=== PATIENT | female | born 1990 | race Caucasian/White ===

== ENCOUNTER 2016-10-01 07:51 | Inpatient (IN) | payer OTHER ==
[2016-10-01 08:28] LABS: Hematocrit 37 % (35-47); Hemoglobin 12.4 g/dl (12.0-16.0); Mean Corpuscular HGB Conc 33 g/dl (31-36); Mean Corpuscular Hemoglobin 29 pg (27-31); Mean Corpuscular Volume 86 fL (80-97); Mean Platelet Volume 7 um3 (7.4-10.4); Red Blood Count 4.31 10^6/ul (4.0-5.4); Red Cell Distribution Width 15 % (10.5-15); White Blood Count 9.8 10^3/ul (3.5-10.8)
[2016-10-01] MEDS ORDERED: Oxytocin in LR* 20 UNITS/1,000 ML BAG IVPB SCH (10:00)
[2016-10-01 12:55] LABS: Benzodiazepine Urine Screen None Detected (None Detect)
[2016-10-01] MEDS ORDERED: OBEPIDURAL* 250 ML ONE (16:58)
[2016-10-01] MEDS ORDERED: Famotidine TAB* 20 MG PO PRN (17:34)
[2016-10-01] MEDS ORDERED: Sodium Citrate/Citric Acid* 15 ML UDC PO PRN (17:34)
[2016-10-01] MEDS ORDERED: EPHEDrine (Pressors)* 50 MG/ML VIAL IV PUSH PRN ×2 (17:34)
[2016-10-01] MEDS ORDERED: Phenylephrine IV* 40 MCG/ML 10 ML SYRINGE IV PUSH PRN ×2 (17:34)
[2016-10-01] MEDS ORDERED: OBEPIDURAL* 250 ML EPIDURAL SCH (18:00)
[2016-10-01] MEDS ORDERED: Glycerin ADULT SUPP PR PRN (19:22)
[2016-10-01] MEDS ORDERED: Witch Hazel PAD* JAR TOPICAL PRN (19:22)
[2016-10-01] MEDS ORDERED: Dibucaine 1% 28.35 GM TUBE PR PRN (19:22)
[2016-10-01] MEDS: Ibuprofen TAB* 600 MG PO PRN (19:39)
[2016-10-01] MEDS ORDERED: Simethicone TAB* 80 MG TAB.CHEW PO SCH (21:00)
[2016-10-01] MEDS: Docusate CAP* 100 MG PO SCH (21:35)
[2016-10-01] MEDS: Acetaminophen TAB* 325 MG PO PRN (21:36)
[2016-10-02] MEDS: Ibuprofen TAB* 600 MG PO PRN ×3 (02:07→17:58)
[2016-10-02] MEDS: Acetaminophen TAB* 325 MG PO PRN ×2 (05:12→09:41)
[2016-10-02 07:28] LABS: Hematocrit 34 % (35-47); Hemoglobin 11.4 g/dl (12.0-16.0); Mean Corpuscular HGB Conc 34 g/dl (31-36); Mean Corpuscular Hemoglobin 29 pg (27-31); Mean Corpuscular Volume 87 fL (80-97); Mean Platelet Volume 8 um3 (7.4-10.4); Red Cell Distribution Width 15 % (10.5-15); White Blood Count 11.1 10^3/ul (3.5-10.8)
[2016-10-02] MEDS ORDERED: Ferrous Gluconate TAB* 324 MG TAB PO SCH (09:00)
[2016-10-02] MEDS ORDERED: Varicella Virus Vaccine Live* 0.5 ML VIAL SUBCUT ONE (09:00)
[2016-10-02] MEDS: Docusate CAP* 100 MG PO SCH ×2 (09:41→14:34)
[2016-10-02 20:22] VITALS: BP 120/79
== END 2016-10-02 20:10 | disposition home or self-care (01) | DRG 560 ==
LOC: MCHOBOUT 07:51 → MCHOB 08:54
PROVIDERS: ADMIT Obstetrics & Gynecology; ATTEND Obstetrics & Gynecology
PROC: 10E0XZZ Delivery of Products of Conception, External Approach (ICD-10-PCS; principal; 2016-10-01)
PROC: 3E033VJ Introduction of Other Hormone into Peripheral Vein, Percutaneous Approach (ICD-10-PCS; 2016-10-01)
DX: O40.3XX0 Polyhydramnios, third trimester, not applicable or unspecified (principal); O69.81X0 Labor and delivery complicated by cord around neck, without compression, not applicable or unspecified; Z3A.39 39 weeks gestation of pregnancy; Z37.0 Single live birth
CPT/HCPCS: 36415; 80307; 85025; 86850; 86900; 86901; A9270-GY

== ENCOUNTER → 2019-04-10 05:13 | Emergency (ER) | payer OTHER ==
[~2019-04-10 05:13] MED LIST: Fluorescein Sodium TOPICAL* 1 MG TEST STRIP OPHTHALMIC ONE; Ketorolac INJ* 30 MG/ML 1 ML VIAL IV PUSH ONE; Metoclopramide IV* 5 MG/ML 2 ML VIAL IV ONE; Morphine 4 MG/ML VIAL (1 ml) 4 MG/ML VIAL IV ONE; NS 0.9% 1000 ML** 1,000 ML IV ONE; Tetracaine 0.5% OPTH.SOL 4 ML* 1 DROP BTL BOTH EYES SCH; Tetracaine 0.5% OPTH.SOL 4 ML* 1 DROP BTL ONE; diPHENhydraMINE PO* 50 MG PO ONE
--- NOTE | 2019-04-10 05:35 | ED ---
Throat Pain/Nasal Congestion - HPI Summary HPI Summary: Pt. is a 28 y.o female who presents to the ER for severe right eye pain x 7 days. Pt. states she noticed pain to right eye a week ago while camping. Pt. states she took claritin and pain improved. Pain started again last night and has been severe today. Pt. notes vision is blurry but not hazy. Pt. states she has a headache on the right with pressure behind her eye. She notes a hx of migraines but has never had sxs like this before. Does not wear contacts. Denies injury. Denies fever, vomiting, sore throat, nasal congestion. Sxs are moderate in severity. Lights and opening eye make sxs worse. Nothing makes sxs better. - History of Current Complaint Chief Complaint: EDEyeProblem Time Seen by Provider: 04/10/19 05:35 Hx Obtained From: Patient - Allergies/Home Medications Allergies/Adverse Reactions: Allergies Allergy/AdvReac Type Severity Reaction Status Date / Time MS Ceftriaxone [Ceftriaxone] Allergy Intermediate Hives Verified 10/01/16 08:15 MS Ketorolac Tromethamine Allergy Intermediate Hives Verified 10/01/16 08:15 [From Toradol] PMH/Surg Hx/FS Hx/Imm Hx Previously Healthy: Yes - Surgical History Surgery Procedure, Year, and Place: APPY AGE 15 - Immunization History Date of Tetanus Vaccine: < 10years Infectious Disease History: No Infectious Disease History: Denies: Traveled Outside the [place] in Last 30 Days - Family History Known Family History: Positive: Non-Contributory - Social History Occupation: Unemployed Lives: With Family Alcohol Use: None Substance Use Type: Reports: Marijuana Substance Use Comment - Amount & Last Used: Positive test Smoking Status (MU): Never Smoked Tobacco Have You Smoked in the Last Year: No Review of Systems Constitutional: Negative Negative: Fever, Chills Positive: Photophobia, Blurred Vision, Erythema ENT: Negative Cardiovascular: Negative Respiratory: Negative Skin: Negative Positive: Headache. Negative: Weakness, Paresthesia, Numbness All Other Systems Reviewed And Are Negative: Yes Physical Exam Triage Information Reviewed: Yes Vital Signs On Initial Exam: Initial Vitals Temp Pulse Resp BP Pulse Ox 97.5 F 72 18 151/104 96 04/10/19 05:14 04/10/19 05:14 04/10/19 05:14 04/10/19 05:14 04/10/19 05:14 Vital Signs Reviewed: Yes Appearance: Positive: Pain Distress - Pt. sitting on bed with right eye covered. Appears in pain but nontoxic. Skin: Positive: Warm, Dry Head/Face: Positive: Normal Head/Face Inspection Eyes: Positive: Other: - Left eye unremarkable. Right eye is diffusely injected with tearing. Cornea is clear and not hazy. EOMI with pain. Right pupil slightly more constricted when compared to the left. Pupil is round. Anterior chamber is clear. Neck: Positive: Supple Musculoskeletal: Positive: Normal, Strength/ROM Intact Neurological: Positive: Normal, Alert, Oriented to Person Place, Time, CN Intact II-III Psychiatric: Positive: Affect/Mood Appropriate Diagnostics - Vital Signs Vital Signs Temp Pulse Resp BP Pulse Ox 04/10/19 05:14 97.5 F 72 18 151/104 96 - Laboratory Lab Statement: Any lab studies that have been ordered have been reviewed, and results considered in the medical decision making process. EENT Course/Dx - Course Course Of Treatment: Pt. with severe right eye pain. Afebrile. Tetracaine applied without much improvement in pain. Fluoroscein dye applied and no uptake noted. Pt. examined by Dr. Graf as well. He feel sxs may be secondary to migraine. Will given migraine cocktail and plan to send pt. to ophthalmology this morning. After mirgraine cocktail pt. is feeling much better. She is sitting on side of bed with both eyes opened. She notes mild remaining irritations. I was able to get pt. an apt. today at Dr. Cho's office at 1015 for further evaluation. Pt.'s mother present. Pt. will go to their office today at 1015 for further evaluation. Will return to ER if sxs change or worsen. Pt. understands and agrees with plan. - Diagnoses Provider Diagnoses: Ocular migraine, Injection of surface of right eye Discharge - Sign-Out/Discharge Documenting (check all that apply): Patient Departure Patient Received Moderate/Deep Sedation with Procedure: No - Discharge Plan Condition: Improved Disposition: HOME Patient Education Materials: Eye Pain (ED), Ocular Migraine (ED) Referrals: Eliana Carbajal MD [Primary Care Provider] - Mars Cho MD [Medical Doctor] - Additional Instructions: Please go to Dr. Cho's office today, 04/10/19, at 1015am to be seen Return to ER sooner if symptoms change or worsen - Billing Disposition and Condition Condition: IMPROVED Disposition: Home
[2019-04-10 09:19] VITALS: BP 125/85
== END | disposition home or self-care (01) ==
LOC: ED 05:13
DX: G43.109 Migraine with aura, not intractable, without status migrainosus (principal); H11.89 Other specified disorders of conjunctiva; Z88.1 Allergy status to other antibiotic agents; Z88.8 Allergy status to other drugs, medicaments and biological substances
CPT/HCPCS: 96361; 96365; 96375; 99283; A9270-GY; J2270; J2765